=== PATIENT | female | born 1980 | race Caucasian/White ===

== ENCOUNTER 2016-03-31 08:02 | Outpatient (CLI) | payer OTHER | END 2016-03-31 08:03 | disposition home or self-care (01) | DX: Z36 Encounter for antenatal screening of mother (principal) ==

== ENCOUNTER 2016-06-14 07:27 | Outpatient (CLI) | payer OTHER | END 2016-06-14 07:28 | disposition home or self-care (01) | DX: Z34.82 Encounter for supervision of other normal pregnancy, second trimester (principal) ==

== ENCOUNTER 2016-08-01 15:33 | Outpatient (CLI) | payer OTHER ==
[2016-08-01 17:10] LABS: HGB - HEMOGLOBIN 11.5 g/dL (12.0-16.0); MEAN CORPUSCULAR HEMOGLOBIN 30.2 pg (27.0-31.0); MEAN CORPUSCULAR HGB CONC 33.8 g/dL (32.0-36.0); MEAN CORPUSCULAR VOLUME 89.3 fL (81.0-99.0); MEAN PLATELET VOLUME 8.4 fL (7.9-10.8); RED BLOOD COUNT 3.81 10^6/uL (4.20-5.40); RED CELL DISTRIBUTION WIDTH 12.6 % (12.0-15.0); WHITE BLOOD COUNT 13.1 x10^3/uL (4.8-10.8)
== END 2016-08-01 15:34 | disposition home or self-care (01) ==
LOC: LAB 15:33
PROVIDERS: ATTEND Obstetrics & Gynecology
DX: Z36 Encounter for antenatal screening of mother (principal)
CPT/HCPCS: 36415; 82950; 86850

== ENCOUNTER 2016-08-22 07:44 | Outpatient (CLI) | payer OTHER ==
[2016-08-22 08:29] LABS: GTT GLUCOSE,FASTING 83 mg/dL (70-100)
== END 2016-08-22 07:45 | disposition home or self-care (01) ==
LOC: LAB 07:44
PROVIDERS: ATTEND Obstetrics & Gynecology
DX: R73.02 Impaired glucose tolerance (oral) (principal)
CPT/HCPCS: 36415; 82951

== ENCOUNTER 2016-09-28 08:59 | Outpatient (CLI) | payer OTHER | END 2016-09-28 09:00 | disposition home or self-care (01) | LOC: LAB.R 08:59 | PROVIDERS: ATTEND Obstetrics & Gynecology | DX: Z34.83 Encounter for supervision of other normal pregnancy, third trimester (principal) | CPT/HCPCS: 87081 ==

== ENCOUNTER 2016-10-23 04:06 | Inpatient (IN) | payer OTHER ==
[2016-10-23] MEDS ORDERED: LACTATED RINGERS 1,000 ML IV ONE (04:32)
[2016-10-23] MEDS ORDERED: LIDOCAINE 1% 50 ML MDV ONE (04:40)
[2016-10-23] MEDS ORDERED: OXYTOCIN 10 UNIT/ML VIAL ONE (04:40)
[2016-10-23] MEDS ORDERED: SODIUM CHLORIDE FLUSH 0.9% 10 ML SYRINGE IVP ONE (04:41)
[2016-10-23] MEDS ORDERED: OXYTOCIN/LACTATED RINGERS 250 ML IV ONE ×2 (04:56→10:46)
--- NOTE | 2016-10-23 05:06 | HISTORY & PHYSICAL EXAMINATION ---
Admit History - Instructions [place]/Slash: -Left hand click circles element as positive or present. -Right hand click slashes element as negative or not present. - Visit Reason Visit Reason: Contractions, Membranes rupture - : 4 Parity: 1 Premature: 0 Ectopic: 0 : 2 Care: positive: [facility] Risk/History: positive: None Complications This : positive: None Smoking Status: Never smoker - Mother's Labs Mother's Blood Type: positive: A Mother's RH: positive: Positive GBS: positive: Group B Step Negative Rubella Status: positive: Immune - Other Maternal History Other Maternal History: hx of SAb x2 Meds/Allgy - Home Medications Home Medications: Ambulatory Orders Medication Instructions Recorded Confirmed No Known Home Medications [No 12/11/15 12/11/15 Known Home Medications] - Allergies Allergies/Adverse Reactions: Allergies Allergy/AdvReac Type Severity Reaction Status Date / Time Penicillins AdvReac Hives Verified 12/11/15 07:11 Physical - Other Notes Labor Progress Note/Additional Text: Cindy is a 36 y/o who presented @ 39w3d complete and pushing having entered labor & rapidly progressed prior to arrival at the hospital. her was complicated by hx of SAB & attendant anxiety re: well- being. She was dated by an early first trimester US, which was not consistent w / her LMP. She delivered vaginally immediately upon arrival w/ RN attendance and no complications. Provider, Dr. Bertram Kim MD, arrived during the 3rd stage, when viable male infant had been delivered & was dxcm-sl-iygw with his mother; Cindy's was present at the bedside & was supportive. Bleeding was well-controlled & fundus was firm. Placenta had yet to be delivered.
[2016-10-23] MEDS ORDERED: ACETAMINOPHEN 325 MG TABLET PO PRN (05:12)
[2016-10-23] MEDS ORDERED: PLEASE ENTER HEIGHT AND WEIGHT PO PRN (05:24)
--- NOTE | 2016-10-23 05:33 | DELIVERY NOTE ---
Delivery Note - Labor Labor: positive: Spontaneous - Delivery Method Delivery Method: positive: Spontaneous vaginal delivery - Presentation Presentation: positive: Vertex, OA - occiput anterior - Nuchal Cord Nuchal Cord: positive: None - Anesthetic Anesthetic: positive: Lidocaine - 1% plain Volume: positive: Other (30 ml) - Amniotic Fluid Description Amniotic Fluid Description: positive: Clear - Episiotomy Type Episiotomy Type: positive: None - Laceration Laceration: positive: 2nd degree - Suture Suture Type: positive: Vicryl Suture Size: positive: 3-0 - Delivery Outcome Delivery Outcome: positive: Livebirth (Live Male infant 8 lb 7 oz, Apgars 8/9) - [place]: positive: Placed in direct skin contact with mother, Stimulated sex: positive: Male - Cord Cord: positive: 3 vessels - Placenta Placenta: positive: Intact, Spontaneous - Estimated Blood Loss Estimated Blood Loss (in cc): 450 - Post Delivery Events Post Delivery Events: positive: No post delivery events - Delivery Comments (Free Text/Narrative) Delivery Comments (Free Text/Narrative): Pt SROM at 0245 with out labor. This started soon after. brought her in upon arrival she was very active. Exam showed her to be 7 cm. Physician summoned at 0431 and arrived at 0444. Pa reached complete at 0440 and delivered by the nurse at 0443 over a 2nd degree laceration. Placenta followed 0458 was inspected and found to be complete. Her repair was accomplished with 3-0 Vicril using 1% lidocane for anaesthesia. EBL was 450 ml.
[2016-10-23] MEDS: IBUPROFEN 600 MG TABLET PO SCH ×3 (05:57→21:02)
[2016-10-23] MEDS ORDERED: LACTATED RINGERS 1,000 ML IV SCH (06:00)
[2016-10-23 06:17] LABS: BASOPHILS # (AUTO) 0.1 10^3/uL (0.0-0.1); BASOPHILS % (AUTO) 0.4 %; EOSINOPHILS % (AUTO) 0.2 %; HCT - HEMATOCRIT 36.1 % (37.0-47.0); HGB - HEMOGLOBIN 11.8 g/dL (12.0-16.0); LYMPHOCYTES # (AUTO) 1.8 10^3/uL (1.5-3.5); LYMPHOCYTES % (AUTO) 10.4 %; MEAN CORPUSCULAR HEMOGLOBIN 27.5 pg (27.0-31.0); MEAN CORPUSCULAR HGB CONC 32.6 g/dL (32.0-36.0); MEAN CORPUSCULAR VOLUME 84.2 fL (81.0-99.0); MONOCYTES # (AUTO) 0.8 10^3/uL (0.0-1.0); MONOCYTES % (AUTO) 4.8 %; NEUTROPHILS # (AUTO) 14.3 10^3/uL (1.5-6.6); NEUTROPHILS % (AUTO) 84.2 %; RED BLOOD COUNT 4.29 10^6/uL (4.20-5.40); RED CELL DISTRIBUTION WIDTH 13.4 % (12.0-15.0); UNCORRECTED WHITE BLOOD COUNT 16.9 x10^3/uL; WHITE BLOOD COUNT 16.9 x10^3/uL (4.8-10.8)
[2016-10-23] MEDS: ACETAMINOPHEN 325 MG TABLET PO SCH ×3 (07:27→21:01)
[2016-10-23] MEDS: oxyCODONE 5 MG TABLET PO PRN ×2 (07:27→14:32)
[2016-10-23] MEDS: SODIUM CHLORIDE FLUSH 0.9% 10 ML SYRINGE IVP SCH ×2 (16:55→23:48)
[2016-10-24] MEDS: ACETAMINOPHEN 325 MG TABLET PO SCH ×2 (02:27→08:25)
[2016-10-24] MEDS: IBUPROFEN 600 MG TABLET PO SCH ×2 (02:27→08:25)
--- NOTE | 2016-10-24 03:47 | PROVIDER PROGRESS NOTE ---
Subjective - Prog Note Date Prog Note Date: 10/23/16 Prog Note Time: 10:30 - Subjective Pt reports feeling: No change Subjective: Nursing concerned about bright red bleeding on pad was more volume than expected. Patient feels well and reports cramping but no dizziness, rapid pulse or orthostatic changes. No easy bleeding or known coagulopathy. She experienced a spontaneous delivery w minor laceration repair and expulsion of an intact placenta. Objective - Vital Signs/Intake & Output Vital Signs: Vital Signs x48h Temp Pulse Resp BP Pulse Ox 10/24/16 00:00 98.1 F 96 20 121/79 98 10/23/16 20:18 98.2 F 91 16 117/74 99 Intake & Output: Intake & Output 10/21/16 10/22/16 10/23/16 10/24/16 23:59 23:59 23:59 23:59 Output Total 500 Balance -500 - Lab Results Fish Bones: 10/23/16 05:30 Other Labs: Lab Results x24hrs 10/23/16 Range/Units 05:30 WBC 16.9 H (4.8-10.8) x10^3/uL RBC 4.29 (4.20-5.40) 10^6/uL Hgb 11.8 L (12.0-16.0) g/dL Hct 36.1 L (37.0-47.0) % MCV 84.2 (81.0-99.0) fL MCH 27.5 (27.0-31.0) pg MCHC 32.6 (32.0-36.0) g/dL RDW 13.4 (12.0-15.0) % Plt Count 227 (130-450) 10^3/uL MPV 10.0 (7.9-10.8) fL Neut # 14.3 H (1.5-6.6) 10^3/uL Lymph # 1.8 (1.5-3.5) 10^3/uL Grainger # 0.8 (0.0-1.0) 10^3/uL Eos # 0.0 (0.0-0.7) 10^3/uL Baso # 0.1 (0.0-0.1) 10^3/uL Absolute Nucleated RBC 0.00 x10^3/uL Nucleated RBCs 0.0 /100WBC Exam - Exam Vital Signs: Vital Signs (72 hours) 10/23/16 10/23/16 10/23/16 04:25 05:00 05:09 Temperature 97.5 F L Heart Rate [ 77 96 89 Radial] Respiratory 22 20 Rate Blood Pressure [Left Brachial artery] Blood Pressure 147/83 H 119/84 H [Right Brachial artery] O2 Saturation 97 98 10/23/16 10/23/16 10/23/16 05:26 05:45 06:00 Temperature Heart Rate [ 86 99 87 Radial] Respiratory 20 20 20 Rate Blood Pressure [Left Brachial artery] Blood Pressure 115/73 119/87 H 129/85 H [Right Brachial artery] O2 Saturation 98 99 99 10/23/16 10/23/16 10/23/16 06:40 07:35 10:47 Temperature 97.7 F 98.2 F Heart Rate [ 91 81 85 Radial] Respiratory 24 16 18 Rate Blood Pressure 132/83 H [Left Brachial artery] Blood Pressure 121/84 H 128/83 H [Right Brachial artery] O2 Saturation 98 100 10/23/16 10/23/16 10/23/16 12:04 17:30 20:18 Temperature 97.9 F 98.8 F 98.2 F Heart Rate [ 74 82 91 Radial] Respiratory 18 18 16 Rate Blood Pressure 120/80 120/81 H [Left Brachial artery] Blood Pressure 117/74 [Right Brachial artery] O2 Saturation 100 99 99 10/24/16 00:00 Temperature 98.1 F Heart Rate [ 96 Radial] Respiratory 20 Rate Blood Pressure [Left Brachial artery] Blood Pressure 121/79 [Right Brachial artery] O2 Saturation 98 General: Alert, Oriented x3, Cooperative, No acute distress Abdomen: Normal bowel sounds, No tenderness, Other (Uterus firm & nontender; Ext genital normal w 40 cc of blood on pad without continuous flow) Extremities: No edema, Normal pulses Psych/Mental Status: Mental status NL Assessment/Plan - Assessment/Plan Assessment: Current flow not excessive but will keep a close watch. Plan: If flow increases or fails to subside, I will check CBC and conduct speculum exam of laceration repair. 2nd bag of pitocin ordered.
[2016-10-24 05:54] LABS: BASOPHILS # (AUTO) 0.1 10^3/uL (0.0-0.1); BASOPHILS % (AUTO) 0.5 %; EOSINOPHILS # (AUTO) 0.1 10^3/uL (0.0-0.7); EOSINOPHILS % (AUTO) 0.8 %; HCT - HEMATOCRIT 25.7 % (37.0-47.0); HGB - HEMOGLOBIN 8.5 g/dL (12.0-16.0); LYMPHOCYTES # (AUTO) 2.3 10^3/uL (1.5-3.5); LYMPHOCYTES % (AUTO) 21.3 %; MEAN CORPUSCULAR HEMOGLOBIN 27.6 pg (27.0-31.0); MEAN CORPUSCULAR HGB CONC 33.1 g/dL (32.0-36.0); MEAN CORPUSCULAR VOLUME 83.4 fL (81.0-99.0); MEAN PLATELET VOLUME 9.5 fL (7.9-10.8); MONOCYTES # (AUTO) 0.5 10^3/uL (0.0-1.0); MONOCYTES % (AUTO) 4.8 %; NEUTROPHILS # (AUTO) 7.7 10^3/uL (1.5-6.6); NEUTROPHILS % (AUTO) 72.6 %; RED BLOOD COUNT 3.08 10^6/uL (4.20-5.40); RED CELL DISTRIBUTION WIDTH 13.5 % (12.0-15.0); UNCORRECTED WHITE BLOOD COUNT 10.6 x10^3/uL; WHITE BLOOD COUNT 10.6 x10^3/uL (4.8-10.8)
[2016-10-24 08:32] VITALS: BP 109/81
--- NOTE | 2016-10-24 11:42 | Labor Flowsheet ---
Labor Flowsheet Datetime Report Generated by CPN: 10/24/2016 11:42 Datetime: 10/24/2016 08:31 Temperature (F): 93.9 Temperature (C): 34.4 Temperature (C): 34.4 COMMUNICATION LaborFlag: Labor Datetime: 10/24/2016 08:30 VITAL SIGNS NBP Sys/Geovanna/Mean (mmHg): 109 : 81 : 87 Pulse: 94 Datetime: 10/23/2016 07:39 SpO2 (%): 100
--- NOTE | 2016-10-24 12:34 | DISCHARGE SUMMARY ---
DATE OF ADMISSION: 10/23/2016 DATE OF DISCHARGE: 10/24/2016 DIAGNOSIS: Precipitous delivery of a living male . PROCEDURE: Precipitous delivery (Dr. Bertram Dupree and nursing staff). COMPLICATIONS: None. HISTORY OF PRESENT ILLNESS: The patient is a 36-year-old 4, para 1-0-2-1, who presented at 39 weeks and 3 days gestation with rapidly progressing labor. There was rupture of membranes with clear fluid. Upon arrival , the patient promptly delivered. Dr. Dupree came immediately and was en route. LABORATORY: Blood type A positive, antibody negative, GBS negative, rubella immune, hepatitis B surface antigen negative, HIV negative. HOSPITAL COURSE: After presenting with a precipitous delivery, she was examined by Dr. Dupree and found to have a grade 2 laceration, which was uneventfully repaired. Reference Dr. Dupree's note. Total blood loss was estimated at [address] Dupree's note. Later in the morning after delivery, nursing was concerned about continued bright red bleeding. Dr. Dietrich came and evaluated the patient and found the bleeding not to be excessive, and a firm fundus with the episiotomy apparently intact. Baseline hemoglobin was 11.8 and day #1 of 8.5. The patient' s bleeding had completely subsided by day #1. She was well without difficulty. Pitocin had been discontinued after 2 bags. She was prepared for discharge and given complete self-care and infant care instructions. She will be seen in 6 weeks for a routine followup appointment. DISCHARGE MEDICATIONS 1. Motrin 600 q.i.d. for 1 week with refills. 2. vitamins with iron. 3. Ferrous sulfate 325 one tab b.i.d. to t.i.d. 4. Colace 100 b.i.d. JOB #: [id number] EXT JOB #:[id number] [facility]
== END 2016-10-24 11:40 | disposition home or self-care (01) | DRG 775 ==
LOC: WFO 04:06 → FBP 04:08 → WFO 04:09 → FBP 04:10 → UNDOADMIN 04:10
PROVIDERS: ADMIT Registered Nurse; ATTEND Obstetrics & Gynecology
PROC: 10E0XZZ Delivery of Products of Conception, External Approach (ICD-10-PCS; principal; 2016-10-23)
PROC: 0KQM0ZZ Repair Perineum Muscle, Open Approach (ICD-10-PCS; 2016-10-23)
DX: O42.02 Full-term premature rupture of membranes, onset of labor within 24 hours of rupture (principal); O62.3 Precipitate labor; O70.1 Second degree perineal laceration during delivery; Z3A.39 39 weeks gestation of pregnancy; Z37.0 Single live birth
CPT/HCPCS: 36415; 85025; 99211

== ENCOUNTER 2016-11-29 15:52 | Outpatient (CLI) | payer OTHER | END 2016-11-29 15:53 | disposition home or self-care (01) | LOC: LAB.R 15:52 | PROVIDERS: ATTEND Obstetrics & Gynecology | DX: Z11.3 Encounter for screening for infections with a predominantly sexual mode of transmission (principal) | CPT/HCPCS: 87491; 87591 ==

== ENCOUNTER 2020-08-25 10:13 | Outpatient (CLI) | payer OTHER ==
--- NOTE | 2020-08-26 12:16 | Mammography Report ---
BILATERAL DIGITAL DIAGNOSTIC MAMMOGRAM 3D/2D: 08/25/2020 CLINICAL: Diffuse left breast pain. No prior exams were available for comparison. The tissue of both breasts is heterogeneously dense. T his may lower the sensitivity of mammography. No significant masses, calcifications, or other findings are seen in either breast. IMPRESSION: NEGATIVE There is no abnormality seen in the left breast to correspond with the diffuse pain, however, clinica l followup is recommended. There is no mammographic evidence of malignancy. A 1 year screening mammogram is recommended. This exam was interpreted at Station ID: [id number]. NOTE: For mammograms, a report in lay terms will be sent to the patient. Approximately 15% of breast malignancies will not be visualized mammographically. In the management of a palpable breast mass, a negative mammogram must not discourage biopsy of a clinically suspicious lesion. Electronically Signed By: Jw Thurman M.D. ddp/:08/25/2020 11:02:20 ACR BI-RADS Category 1: Negative 3341F PARENCHYMAL PATTERN: (D) - The breast(s) demonstrate(s) heterogeneously dense fibroglandular parmark hewitt. BI-RADS CATEGORY: (1) - 1 RECOMMENDATION: (ANNUAL) - Recommend routine annual screening mammography. [id number] 1 year screening LATERALITY: (B)
== END 2020-08-25 10:14 | disposition home or self-care (01) ==
LOC: DI 10:13
PROVIDERS: ATTEND Physician Assistant
DX: N64.4 Mastodynia (principal); Z80.3 Family history of malignant neoplasm of breast; Z12.39 Encounter for other screening for malignant neoplasm of breast